=== PATIENT | female | born 1955 | race Two or more races ===

== ENCOUNTER 2025-07-10 12:14 | Inpatient (IN) | payer OTHER ==
[~2025-07-10] VITALS: Ht 167.6 cm; Wt 68.3 kg
[~2025-07-10 12:14] MED LIST: ATOR40TA28 PO; ATOR40TA71 PO; CALC-613 PO; CALC500T37 CHEW; DICL100G60 TP; DOCU-412 PO; FAMO20 PO; HYDR25TA84 PO; INSU100V SQ; LOSA-382 PO; MAGN400T57 PO; METF-1211 PO; METH-811 PO; METO25 PO; MULT-14 PO; MULT-660 PO; POLY17PO62 PO; SENN-374 PO
[2025-07-10 12:41] LABS: PLATELET COUNT (AUTO) 334 K/uL (150-450); RED BLOOD CELL COUNT(AUTO) 4.26 MIL/uL (4.00-5.20); RED CELL DISTRIBUTION WIDTH 15.2 % (11.5-14.5); WHITE BLOOD COUNT (AUTO) 7.5 K/uL (4.5-11.0)
[2025-07-10] MEDS ORDERED: 0.9% SODIUM CHLORIDE 10 ML SYRINGE IVP ONE (12:43)
[2025-07-10] MEDS ORDERED: IOHEXOL 350 MG/ML 100 ML VIAL ONE (12:43)
[2025-07-10] MEDS ORDERED: SODIUM CHLORIDE 0.9% 100 ML ONE (12:43)
[2025-07-10 12:52] LABS: CALCIUM, TOTAL 9.1 mg/dL (8.8-10.5); CREATININE 0.54 mg/dL (0.60-1.30); GLOMERULAR FILTR. RATE CALC > 60 mL/min (>60); GLUCOSE,RANDOM 126 mg/dL (70-110); SODIUM SERUM 137 mmol/L (136-145); UREA NITROGEN, BLOOD 12 mg/dL (7-18)
[2025-07-10 12:56] LABS: ASPARTATE AMINOTRANSFERASE 14 U/L (15-37); CHOL/HDL RATIO 2.0 (3.9-5.7); LDL CHOL (CALC.) 29 mg/dL (0-130); TOTAL PROTEIN, SERUM 6.7 g/dL (6.4-8.2)
[2025-07-10 12:58] LABS: TROPONIN I-HIGH SENSITIVITY 8 ng/L (<51)
[2025-07-10 16:33] VITALS: BP 145/77; PULSE 64; RESP 18; TEMP 97.9; O2SAT 98
[2025-07-10 18:42] LABS: TROPONIN I-HIGH SENSITIVITY 8 ng/L (<51)
[2025-07-10] MEDS ORDERED: HYDROCODONE/ACETAMINOPHEN 5-325 MG TABLET PO PRN (18:45)
[2025-07-10] MEDS ORDERED: ONDANSETRON HCL 4 MG/2 ML VIAL IVP PRN (18:45)
[2025-07-10] MEDS ORDERED: ZOLPIDEM TARTRATE 5 MG TABLET PO PRN (18:45)
[2025-07-10] MEDS ORDERED: MAGNESIUM HYDROXIDE SUSPENSION 30 ML UDCUP PO PRN (18:45)
[2025-07-10] MEDS ORDERED: ALBUTEROL SULFATE 2.5 MG/0.5 ML NEB SOLUTION NEB PRN (18:45)
[2025-07-10] MEDS ORDERED: POLYETHYLENE GLYCOL 3350 17 GM PACKET PO PRN (18:45)
[2025-07-10] MEDS ORDERED: BISACODYL 10 MG RECTAL RECTAL SUPPOSITORY PR PRN (18:45)
[2025-07-10] MEDS ORDERED: IPRATROPIUM BROMIDE 0.5 MG/2.5 ML NEB SOLUTION NEB PRN (18:45)
[2025-07-10] MEDS ORDERED: MORPHINE SULFATE 4 MG/ML SYRINGE IVP PRN (18:45)
[2025-07-10 19:40] VITALS: BP 156/64; PULSE 68; RESP 18; TEMP 97.9; O2SAT 96
[2025-07-10] MEDS ORDERED: DEXTROSE 50%-WATER 25 GM/50 ML SYRINGE IVP PRN (20:30)
[2025-07-10] MEDS: ATORVASTATIN CALCIUM 40 MG TABLET PO SCH (21:09)
[2025-07-10] MEDS: FAMOTIDINE 20 MG TABLET PO SCH (21:09)
[2025-07-10] MEDS: METOPROLOL TARTRATE 25 MG TABLET PO SCH (21:09)
[2025-07-10] MEDS: MAGNESIUM OXIDE 400 MG TABLET PO SCH (21:09)
[2025-07-10] MEDS: LOSARTAN POTASSIUM 50 MG TABLET PO SCH (21:09)
[2025-07-10] MEDS: DICLOFENAC SODIUM 1% 100 GM GEL [2GM] TP SCH (21:10)
[2025-07-10] MEDS: CALCIUM CARBONATE 500 MG CHEWABLE TABLET CHEW SCH (21:11)
[2025-07-10] MEDS: DOCUSATE SODIUM 250 MG CAPSULE PO SCH (21:11)
[2025-07-10] MEDS: SENNOSIDES 8.6 MG TABLET PO SCH (21:11)
[2025-07-10] MEDS: INSULIN LISPRO 100 UNITS/ML SQ PRN (21:13)
[2025-07-10 23:57] VITALS: BP 136/68; PULSE 60; RESP 18; TEMP 98.8; O2SAT 94
[2025-07-11 02:04] LABS: TROPONIN I-HIGH SENSITIVITY 9 ng/L (<51)
[2025-07-11 04:06] VITALS: BP 141/70; PULSE 62; RESP 18; TEMP 98.2; O2SAT 96
[2025-07-11 05:21] LABS: GLUCOMETER DEV NAME(LOC) 5S.1D; GLUCOSE,POINT OF CARE 156 MG/DL (70-110)
[2025-07-11 07:32] VITALS: BP 123/60; PULSE 60; RESP 16; TEMP 98.4; O2SAT 94
[2025-07-11] MEDS: PANTOPRAZOLE SODIUM 40 MG DR TABLET PO SCH (08:07)
[2025-07-11] MEDS: MULTIVITAMINS, THERAPEUTIC TABLET PO SCH (08:08)
[2025-07-11 11:05] VITALS: BP 129/72; PULSE 62; RESP 18; TEMP 97.7; O2SAT 94
[2025-07-11] MEDS ORDERED: GADOTERATE MEGLUMINE 10 MMOL/20 ML VIAL IVP ONE (15:29)
[2025-07-11 16:44] VITALS: BP 150/66; PULSE 63; RESP 16; TEMP 97.9; O2SAT 96
[2025-07-11 20:25] VITALS: BP 142/68; PULSE 79; RESP 16; TEMP 98.1; O2SAT 98
[2025-07-11 21:55] LABS: GLUCOMETER DEV NAME(LOC) 5N.1D; GLUCOSE,POINT OF CARE 127 MG/DL (70-110)
[2025-07-11 21:55] LABS: GLUCOMETER DEV NAME(LOC) 5N.1D; GLUCOSE,POINT OF CARE 104 MG/DL (70-110)
[2025-07-11 21:56] LABS: GLUCOMETER DEV NAME(LOC) 5S.1D; GLUCOSE,POINT OF CARE 144 MG/DL (70-110)
[2025-07-11 21:56] LABS: GLUCOMETER DEV NAME(LOC) 5N.1D; GLUCOSE,POINT OF CARE 134 MG/DL (70-110)
[2025-07-11] MEDS: ACETAMINOPHEN 325 MG TABLET PO PRN (23:15)
[2025-07-11 23:28] VITALS: BP 139/64; PULSE 67; RESP 18; TEMP 98.6; O2SAT 98
[2025-07-12 04:33] VITALS: BP 135/72; PULSE 56; RESP 16; TEMP 97.9; O2SAT 98
[2025-07-12 06:10] LABS: GLUCOMETER DEV NAME(LOC) 5N.1D; GLUCOSE,POINT OF CARE 115 MG/DL (70-110)
[2025-07-12 06:59] LABS: PLATELET COUNT (AUTO) 304 K/uL (150-450); RED BLOOD CELL COUNT(AUTO) 4.06 MIL/uL (4.00-5.20); RED CELL DISTRIBUTION WIDTH 15.0 % (11.5-14.5); WHITE BLOOD COUNT (AUTO) 8.6 K/uL (4.5-11.0)
[2025-07-12 08:00] VITALS: BP 147/82; PULSE 62; RESP 18; TEMP 98.2; O2SAT 95
[2025-07-12 11:42] VITALS: BP 139/64; PULSE 65; RESP 16; TEMP 97.7; O2SAT 100
[2025-07-12 12:52] LABS: CALCIUM, TOTAL 8.9 mg/dL (8.8-10.5); CREATININE 0.36 mg/dL (0.60-1.30); GLOMERULAR FILTR. RATE CALC > 60 mL/min (>60); GLUCOSE,RANDOM 106 mg/dL (70-110); SODIUM SERUM 138 mmol/L (136-145); UREA NITROGEN, BLOOD 10 mg/dL (7-18)
[2025-07-12 15:51] LABS: GLUCOMETER DEV NAME(LOC) 5N.1D; GLUCOSE,POINT OF CARE 149 MG/DL (70-110)
== END 2025-07-12 12:50 | disposition home health service (06) | DRG 69 ==
LOC: EMS 12:14 → EDH 14:09 → 5S 16:30
PROVIDERS: ADMIT Hospitalist; ATTEND Hospitalist
DX: G45.9 Transient cerebral ischemic attack, unspecified (principal); I10 Essential (primary) hypertension; E11.9 Type 2 diabetes mellitus without complications; E78.5 Hyperlipidemia, unspecified; Z83.3 Family history of diabetes mellitus; Z86.73 Personal history of transient ischemic attack (TIA), and cerebral infarction without residual deficits; Z79.899 Other long term (current) drug therapy
CPT/HCPCS: 70496; 70498; 70553; 71045; 80048; 80053; 80061; 82948; 82962; 83036; 84484; 85025; 85610; 85730; 86850; 86900; 86901; 92610; 93005; 97112; 97116; 97163; 97167; 97530; 97535; 99291; J7050; 36415-L1; 36415-TC; 70450; 70450-TC